=== PATIENT | male | born 1945 | race Caucasian/White ===

== ENCOUNTER 2020-08-04 16:46 | Inpatient (IN) | payer OTHER, MEDICARE ==
[~2020-08-04] VITALS: Ht 180.3 cm; Wt 129.6 kg
[2020-08-04] MEDS ORDERED: ATOR40TA PO (17:17)
[2020-08-04] MEDS ORDERED: EUTHYROX137 MCG PO (17:18)
[2020-08-04] MEDS ORDERED: FAMO40 PO (17:18)
[2020-08-04] MEDS ORDERED: Prinivil10 MG PO (17:19)
[2020-08-04] MEDS ORDERED: Terazosin HCl10 MG PO (17:20)
[2020-08-04] MEDS ORDERED: LATA.005SO BOTHEYES (17:20)
[2020-08-04] MEDS ORDERED: ZADITOR5 M1 BOTHEYES (17:20)
[2020-08-04] MEDS ORDERED: ZYRTEC10 M4 PO (17:21)
[2020-08-04] MEDS ORDERED: Folic Acid0.8 MG PO (17:39)
[2020-08-04] MEDS ORDERED: Hair, Skin & N1 EACH PO (17:39)
[2020-08-05 04:19] LABS: BASOPHILS ABSOLUTE AUTO 0.03 K/mm3 (0.00-0.23); BASOPHILS PERCENT AUTO 0 % (0-2); EOSINOPHILS ABSOLUTE AUTO 0.11 K/mm3 (0.00-0.68); EOSINOPHILS PERCENT AUTO 1 % (0-6); Hemoglobin 10.9 g/dL (13.5-17.5); IMMATURE GRAN ABSOLUTE AUTO 0.04 K/mm3 (0.00-0.10); IMMATURE GRAN PERCENT AUTO 0 % (0-1); LYMPHOCYTES ABSOLUTE AUTO 1.38 K/mm3 (0.84-5.20); LYMPHOCYTES PERCENT AUTO 11 % (21-46); MONOCYTES ABSOLUTE AUTO 1.64 K/mm3 (0.16-1.47); MONOCYTES PERCENT AUTO 13 % (4-13); Mean Corpuscular HGB 30.4 pg (26.0-34.0); Mean Corpuscular Volume 92 fL (80-100); Mean Platelet Volume 8.9 fL (9.1-12.4); NEUTROPHILS ABSOLUTE AUTO 9.04 K/mm3 (1.96-9.15); NEUTROPHILS PERCENT AUTO 74 % (41-73); Platelet Count 243 K/mm3 (150-400); RDW Coefficient Variation 12.2 % (11.7-14.2); RDW Standard Deviation 41.5 fL (35.1-46.3); Red Blood Cell Count 3.59 M/mm3 (4.30-5.90); White Blood Cell Count 12.24 K/mm3 (4.00-11.30)
--- NOTE | 2020-08-05 04:25 | NUR ---
SHIFT SUMMARY PT NEW ADMIT YESTARDAY EVENING. AAOX4. NPO THIS AM. PAIN CONTROLLED WITH 1MG IV DILAUDID X2 THIS SHIFT. DENIES NAUSEA/EMESIS. REBOUND PAIN TO ABD RLQ. PT UP TO RESTROOM SBA, ASSISTING TO MANAGE LINES. IVF + ABX PER ORDERS. CPAP IN PLACE T/O NIGHT WITH CONT PULSE OXIMETRY. SURGICAL PACKET ON FRONT OF CHART. PT RESTING WELL THIS AM WITH CALL LIGHT IN REACH.
[2020-08-05 04:37] LABS: Anion Gap 7 mmol/L (6-16); Blood Urea Nitrogen 11 mg/dL (8-24); Bun/Creatinine Ratio 12.3 (12.0-20.0); CO2, Blood 23 mmol/L (21-32); Calcium, Blood 7.9 mg/dL (8.5-10.1); Chloride, Blood 107 mmol/L (98-108); Creatinine, Blood 0.89 mg/dL (0.60-1.20); Glomerular Filtration Rate >60 (60-); Glucose, Blood 100 mg/dL (70-99); Potassium, Blood 4.1 mmol/L (3.5-5.5); Sodium, Blood 137 mmol/L (136-145)
[2020-08-05 09:06] LABS: Stool Occult Blood Guaiac 1 Neg (Neg)
--- NOTE | 2020-08-05 17:14 | NUR ---
PT INTO SDS VIA GURN FROM FLOOR. History, Chart, Medications and Allergies reviewed before start of procedure. Lungs clear T/O to Auscultation. Patient confirms NPO status and agrees with scheduled surgery. Pre-Op teaching done. Pt verbalizes understanding.
--- NOTE | 2020-08-05 17:35 | NUR ---
PT'S [place]EDDING RING PUT IN A PLASTIC BAG WITH PT DIRECTOR EXECUTIVE COMMUNICATIONS IT AND PLACED IN HIS ROOM IN A MANILA ENVELOPE IN HIS PERSONAL BELONGINGS BAG.
--- NOTE | 2020-08-05 21:41 | NUR ---
Patient returned from PACU at 2119. is present and will be headed home in a few minutes. Patient with 8/10 abdominal pain. 3 lap sites and a ELKE drain with serosanguinous fluid. taking clear liquids well. back from PACU with 2 L NC O2 will, patient is no ready to go to sleep yet and will ask for the CPAP mask. Call light in reach.
[2020-08-06 04:25] LABS: BASOPHILS ABSOLUTE AUTO 0.01 K/mm3 (0.00-0.23); BASOPHILS PERCENT AUTO 0 % (0-2); EOSINOPHILS PERCENT AUTO 0 % (0-6); Hematocrit 35.2 % (37.0-53.0); Hemoglobin 11.3 g/dL (13.5-17.5); IMMATURE GRAN ABSOLUTE AUTO 0.06 K/mm3 (0.00-0.10); IMMATURE GRAN PERCENT AUTO 1 % (0-1); LYMPHOCYTES ABSOLUTE AUTO 0.53 K/mm3 (0.84-5.20); LYMPHOCYTES PERCENT AUTO 5 % (21-46); MONOCYTES ABSOLUTE AUTO 0.43 K/mm3 (0.16-1.47); MONOCYTES PERCENT AUTO 4 % (4-13); Mean Corpuscular HGB 29.5 pg (26.0-34.0); Mean Corpuscular HGB Conc 32.1 g/dL (31.5-36.5); Mean Corpuscular Volume 92 fL (80-100); Mean Platelet Volume 8.9 fL (9.1-12.4); NEUTROPHILS ABSOLUTE AUTO 10.74 K/mm3 (1.96-9.15); NEUTROPHILS PERCENT AUTO 91 % (41-73); Platelet Count 277 K/mm3 (150-400); RDW Coefficient Variation 11.9 % (11.7-14.2); RDW Standard Deviation 40.4 fL (35.1-46.3); Red Blood Cell Count 3.83 M/mm3 (4.30-5.90); White Blood Cell Count 11.77 K/mm3 (4.00-11.30)
[2020-08-06 04:38] LABS: Anion Gap 9 mmol/L (6-16); Blood Urea Nitrogen 18 mg/dL (8-24); Bun/Creatinine Ratio 20.4 (12.0-20.0); CO2, Blood 22 mmol/L (21-32); Calcium, Blood 8.1 mg/dL (8.5-10.1); Chloride, Blood 109 mmol/L (98-108); Creatinine, Blood 0.88 mg/dL (0.60-1.20); Glomerular Filtration Rate >60 (60-); Glucose, Blood 135 mg/dL (70-99); Potassium, Blood 4.7 mmol/L (3.5-5.5); Sodium, Blood 140 mmol/L (136-145)
--- NOTE | 2020-08-06 05:12 | NUR ---
PATIENT SLEPT WITH THE CPAP AND STATED THAT HE SLEPT WELL, PAIN WAS NOT AN ISSUE WHILE SLEEPING. PATIENT IS NOW UP TO THE BR WITH SBA, VOIDING WELL. ABDOMEN WITH MOD DISTENTION AND C/D/I DRESSINGS ON THE LAP SITES. PATIENT IS CURRENTLY IN A RECLINER CHAIR. CALL LIGHT IN REACH.
--- NOTE | 2020-08-06 16:37 | NUR ---
SHIFT SUMMARY PATIENT STATES PAIN INTERMITANTLY, IMROVED WITH PO PAIN MED. UP TO CHAIR AND BR W/SBA. MINIMAL SS DRAINAGE TO ELKE DRAIN. LAP SITES CLEAR. VSS. PASSING FLATUS. TOLERATING CL PO W/O C/O. IN TO SEE. NO ACUTE CHANGES.
--- NOTE | 2020-08-06 22:52 | NUR ---
ASSUMED CARE AT THIS TIME. RECIEVED REPORT FROM NURSE JUSTA. PATIENT IS CURRENTLY RESTING IN BED WITH CALL LIGHT WITHIN REACH.
--- NOTE | 2020-08-07 04:05 | NUR ---
SHIFT SUMMARY: ACUTE APPENDICITIS POD 2. PT HAD PAIN ONCE DURING SHIFT AND WAS MANAGED BY PO PAIN MED. HE HAS BEEN ABLE TO AMBULATE TO THE BATHROOM WITH SBA. ELKE DRAIN HAD 55 ML OF OUTPUT WITH SANGUINEOUS PINK/RED COLOR. HIS 4 LAP SITES ARE D/C/I. VITAL SIGNS ARE WITHIN NORMAL LIMITS. HE IS PASSING FLATUS. NO ACUTE CHANGES. CALL LIGHT WITHIN REACH. PATIENT IS SLEEPING IN BED WITH CPAP ON.
[2020-08-07 04:13] LABS: BASOPHILS ABSOLUTE AUTO 0.02 K/mm3 (0.00-0.23); BASOPHILS PERCENT AUTO 0 % (0-2); EOSINOPHILS ABSOLUTE AUTO 0.06 K/mm3 (0.00-0.68); EOSINOPHILS PERCENT AUTO 1 % (0-6); Hematocrit 31.9 % (37.0-53.0); Hemoglobin 10.6 g/dL (13.5-17.5); IMMATURE GRAN ABSOLUTE AUTO 0.05 K/mm3 (0.00-0.10); IMMATURE GRAN PERCENT AUTO 0 % (0-1); LYMPHOCYTES ABSOLUTE AUTO 1.46 K/mm3 (0.84-5.20); LYMPHOCYTES PERCENT AUTO 13 % (21-46); MONOCYTES ABSOLUTE AUTO 1.06 K/mm3 (0.16-1.47); MONOCYTES PERCENT AUTO 9 % (4-13); Mean Corpuscular HGB 29.9 pg (26.0-34.0); Mean Corpuscular HGB Conc 33.2 g/dL (31.5-36.5); Mean Corpuscular Volume 90 fL (80-100); NEUTROPHILS ABSOLUTE AUTO 8.93 K/mm3 (1.96-9.15); NEUTROPHILS PERCENT AUTO 77 % (41-73); Platelet Count 293 K/mm3 (150-400); RDW Coefficient Variation 11.9 % (11.7-14.2); RDW Standard Deviation 39.5 fL (35.1-46.3); Red Blood Cell Count 3.55 M/mm3 (4.30-5.90); White Blood Cell Count 11.58 K/mm3 (4.00-11.30)
--- NOTE | 2020-08-07 09:47 | NUR ---
DR CHIN IN TO SEE PT.
--- NOTE | 2020-08-07 16:57 | NUR ---
SUMMARY NO ACUTE CHANGES T/O SHIFT. PT INDEPENDENT IN ROOM. REPORTED BM. SHOWERED THIS SHIFT. TOLERATING SMALL AMOUNTS REGULAR DIET. ELKE PUTTING OUT SS DRAINAGE. USES CALL LIGHT APPROPRIATELY. RESTING W/EYES CLOSED AT THIS TIME.
--- NOTE | 2020-08-07 17:31 | NUR ---
REPORT RECEIVED FROM DWAYNE CH
[2020-08-08 04:54] LABS: BASOPHILS ABSOLUTE AUTO 0.05 K/mm3 (0.00-0.23); BASOPHILS PERCENT AUTO 1 % (0-2); EOSINOPHILS ABSOLUTE AUTO 0.27 K/mm3 (0.00-0.68); EOSINOPHILS PERCENT AUTO 4 % (0-6); Hematocrit 32.9 % (37.0-53.0); Hemoglobin 10.7 g/dL (13.5-17.5); IMMATURE GRAN ABSOLUTE AUTO 0.04 K/mm3 (0.00-0.10); IMMATURE GRAN PERCENT AUTO 1 % (0-1); LYMPHOCYTES ABSOLUTE AUTO 1.92 K/mm3 (0.84-5.20); LYMPHOCYTES PERCENT AUTO 26 % (21-46); MONOCYTES ABSOLUTE AUTO 0.94 K/mm3 (0.16-1.47); MONOCYTES PERCENT AUTO 13 % (4-13); Mean Corpuscular HGB 29.6 pg (26.0-34.0); Mean Corpuscular HGB Conc 32.5 g/dL (31.5-36.5); Mean Corpuscular Volume 91 fL (80-100); NEUTROPHILS ABSOLUTE AUTO 4.06 K/mm3 (1.96-9.15); NEUTROPHILS PERCENT AUTO 56 % (41-73); Platelet Count 289 K/mm3 (150-400); RDW Coefficient Variation 12.2 % (11.7-14.2); RDW Standard Deviation 40.5 fL (35.1-46.3); Red Blood Cell Count 3.62 M/mm3 (4.30-5.90); White Blood Cell Count 7.28 K/mm3 (4.00-11.30)
--- NOTE | 2020-08-08 05:35 | NUR ---
SHIFT SUMMARY LYING IN SEMI FOWLERS WITH EYES OPEN WHILE WATCHING TV. BIOX HAS ALARMED THROUGHOUT THE SHIFT. EACH TIME NURSING NOTED THAT HIS HR WAS LESS THAN 50, PT WOULD SHAKE HIS HAND AND HR WOULD DISPLAY IN THE MID 50'S. HE HAS BEEN AAO X4 EACH TIME. STATES THAT EACH MORNING WHEN HE WAKES UP HIS HR IS IN THE 50'S AND HE FEELS FINE. ELKE DRAIN CONTINUES TO PUT OUT SS FLUID. BULB EMPTIED OF 80ML AND IS COMPRESSED. LAP SITES ARE C/D/I. HAS DENIED PAIN THIS SHIFT, STATED THAT HE DOESN'T LIKE TAKING NARCOTICS AND WOULD ASK FOR TYLENOL IF PAIN INCREASED. TOOK CPAP OFF AT 0400HRS, STATED THAT THIS IS HIS NORMAL. DENIES FURTHER NEEDS OR WANTS AT THIS TIME. SAFETY MEASURES IN PLACE. WILL CONTINUE TO MONITOR AND GIVE HAND OFF TO ONCOMING SHIFT USING SBAR.
[2020-08-08] MEDS ORDERED: AMOCLA500 PO (12:54)
--- NOTE | 2020-08-08 13:50 | NUR ---
Patient discharged home. Discharge instructions given, explained and signed. Antibiotic prescription called into [facility] per patient request. Patient to follow up with surgeon. Patient denied questions or concerns at discharge.
== END 2020-08-08 13:23 | disposition home or self-care (01) | DRG 342 ==
LOC: ER 16:46 → SURS 16:47
PROVIDERS: Surgery; ADMIT Family Medicine
PROC: 0DTJ4ZZ Resection of Appendix, Percutaneous Endoscopic Approach (ICD-10-PCS; principal; 2020-08-05 15:15)
DX: K35.80 Unspecified acute appendicitis (principal); K92.1 Melena; G47.33 Obstructive sleep apnea (adult) (pediatric); Z20.828 Contact with and (suspected) exposure to other viral communicable diseases; K21.9 Gastro-esophageal reflux disease without esophagitis; N40.0 Benign prostatic hyperplasia without lower urinary tract symptoms; E03.9 Hypothyroidism, unspecified; E78.5 Hyperlipidemia, unspecified; I10 Essential (primary) hypertension; F17.290 Nicotine dependence, other tobacco product, uncomplicated; E66.9 Obesity, unspecified; Z68.38 Body mass index [BMI] 38.0-38.9, adult
CPT/HCPCS: 36415; 80048; 82272; 85025; 93005; 93010; 94660; 94667; 94762; 96361; 96365; 96366; 96375; 96376; 99285-25; A9270-GY; C9113; G0378; J0295; J1100; J1170; J1650; J2405; J2704; J3010; J7030; J7120

== ENCOUNTER 2020-08-26 10:04 | Inpatient (IN) | payer OTHER, MEDICARE ==
[~2020-08-26] VITALS: Ht 180.3 cm; Wt 121.0 kg
[~2020-08-26 10:04] MED LIST: AMOCLA500 PO; ATOR40TA PO; EUTHYROX137 MCG PO; FAMO40 PO; Folic Acid0.8 MG PO; Hair, Skin & N1 EACH PO; LATA.005SO BOTHEYES; Prinivil10 MG PO; Terazosin HCl10 MG PO; ZADITOR5 M1 BOTHEYES; ZYRTEC10 M4 PO
[2020-08-26 10:23] LABS: BASOPHILS ABSOLUTE AUTO 0.03 K/mm3 (0.00-0.23); BASOPHILS PERCENT AUTO 0 % (0-2); EOSINOPHILS ABSOLUTE AUTO 0.04 K/mm3 (0.00-0.68); EOSINOPHILS PERCENT AUTO 0 % (0-6); Hematocrit 33.8 % (37.0-53.0); IMMATURE GRAN ABSOLUTE AUTO 0.04 K/mm3 (0.00-0.10); IMMATURE GRAN PERCENT AUTO 0 % (0-1); LYMPHOCYTES ABSOLUTE AUTO 0.91 K/mm3 (0.84-5.20); LYMPHOCYTES PERCENT AUTO 8 % (21-46); MONOCYTES ABSOLUTE AUTO 1.16 K/mm3 (0.16-1.47); MONOCYTES PERCENT AUTO 11 % (4-13); Mean Corpuscular HGB 28.9 pg (26.0-34.0); Mean Corpuscular HGB Conc 32.5 g/dL (31.5-36.5); Mean Corpuscular Volume 89 fL (80-100); Mean Platelet Volume 9.1 fL (9.1-12.4); NEUTROPHILS ABSOLUTE AUTO 8.59 K/mm3 (1.96-9.15); NEUTROPHILS PERCENT AUTO 80 % (41-73); Platelet Count 285 K/mm3 (150-400); RDW Coefficient Variation 12.6 % (11.7-14.2); White Blood Cell Count 10.77 K/mm3 (4.00-11.30)
[2020-08-26 10:46] LABS: Albumin, Blood 2.4 g/dL (3.4-5.0); Albumin/Globulin Ratio 0.5 (0.8-1.8); Bilirubin, Total 0.5 mg/dL (0.1-1.0); Calcium, Blood 8.9 mg/dL (8.5-10.1); Creatinine, Blood 1.27 mg/dL (0.60-1.20); Globulin, Blood 4.4 g/dL (2.2-4.0); Potassium, Blood 4.2 mmol/L (3.5-5.5); Total Protein, Blood 6.8 g/dL (6.4-8.2)
[2020-08-26 13:34] LABS: Source, Urine Clean Catch
[2020-08-26 13:38] LABS: Bilirubin, Urine Neg (Neg); Blood, Urine 1+ (Neg); Glucose Qualitative, Urine Neg (Neg); Ketones, Urine 1+ (Neg); Leukocyte Esterase, Urine Neg (Neg); Nitrite, Urine Neg (Neg); Protein, Urine 1+ (Neg); Urobilinogen, Urine NORM (Normal)
[2020-08-26 13:48] LABS: Appearance, Urine Clear (Clear); Color, Urine Yellow (P-Yellow)
[2020-08-26 13:50] LABS: Bacteria Few /hpf; Granular Casts 0-2 /lpf (0); Mucus Light (0-Heavy); Squamous Epithelial Cells Few /hpf (Few); White Blood Cells, Urine 0-2 /hpf (0-5)
[2020-08-26 15:08] LABS: BASOPHILS ABSOLUTE AUTO 0.03 K/mm3 (0.00-0.23); BASOPHILS PERCENT AUTO 0 % (0-2); EOSINOPHILS ABSOLUTE AUTO 0.12 K/mm3 (0.00-0.68); EOSINOPHILS PERCENT AUTO 1 % (0-6); Hematocrit 32.8 % (37.0-53.0); Hemoglobin 10.4 g/dL (13.5-17.5); IMMATURE GRAN ABSOLUTE AUTO 0.04 K/mm3 (0.00-0.10); IMMATURE GRAN PERCENT AUTO 0 % (0-1); LYMPHOCYTES ABSOLUTE AUTO 1.21 K/mm3 (0.84-5.20); LYMPHOCYTES PERCENT AUTO 13 % (21-46); MONOCYTES ABSOLUTE AUTO 1.08 K/mm3 (0.16-1.47); MONOCYTES PERCENT AUTO 11 % (4-13); Mean Corpuscular HGB 28.7 pg (26.0-34.0); Mean Corpuscular HGB Conc 31.7 g/dL (31.5-36.5); Mean Corpuscular Volume 90 fL (80-100); Mean Platelet Volume 9.2 fL (9.1-12.4); NEUTROPHILS ABSOLUTE AUTO 6.97 K/mm3 (1.96-9.15); NEUTROPHILS PERCENT AUTO 74 % (41-73); Platelet Count 281 K/mm3 (150-400); RDW Coefficient Variation 12.6 % (11.7-14.2); RDW Standard Deviation 41.9 fL (35.1-46.3); Red Blood Cell Count 3.63 M/mm3 (4.30-5.90); White Blood Cell Count 9.45 K/mm3 (4.00-11.30)
[2020-08-26 15:32] LABS: Alanine Aminotransfer (ALT/SGP 43 U/L (12-78); Albumin, Blood 2.2 g/dL (3.4-5.0); Albumin/Globulin Ratio 0.5 (0.8-1.8); Alk Phos 80 U/L (50-136); Anion Gap 7 mmol/L (6-16); Aspartate Aminotrans (AST/SGOT 24 U/L (12-37); Bilirubin, Total 0.4 mg/dL (0.1-1.0); Blood Urea Nitrogen 28 mg/dL (8-24); Bun/Creatinine Ratio 24.6 (12.0-20.0); CO2, Blood 24 mmol/L (21-32); Calcium, Blood 8.2 mg/dL (8.5-10.1); Chloride, Blood 106 mmol/L (98-108); Creatinine, Blood 1.14 mg/dL (0.60-1.20); Globulin, Blood 4.1 g/dL (2.2-4.0); Glomerular Filtration Rate >60 (60-); Glucose, Blood 117 mg/dL (70-99); Potassium, Blood 4.6 mmol/L (3.5-5.5); Sodium, Blood 137 mmol/L (136-145); Total Protein, Blood 6.3 g/dL (6.4-8.2)
--- NOTE | 2020-08-26 16:27 | NUR ---
DR GARY HERE TO SEE PT. STOOL SAMPLES SENT.
--- NOTE | 2020-08-26 18:45 | NUR ---
DR NOTIFIED OF PT'S RECENT HX OF DIARRHEA AND PT REPORTING SOB AT TIMES. REPORTS TO ORDER RAPID COVID. RAPID SENT, DISCUSSED WITH DERRICK BUILDER. PT WEARING MASK.
--- NOTE | 2020-08-27 05:57 | NUR ---
SUMMARY PT SLEPT QUIETLY TONIGHT WEARING CPAP.NO N/V. IV FLUIDS INFUSING.
[2020-08-27 06:20] LABS: BASOPHILS ABSOLUTE AUTO 0.02 K/mm3 (0.00-0.23); BASOPHILS PERCENT AUTO 0 % (0-2); EOSINOPHILS ABSOLUTE AUTO 0.22 K/mm3 (0.00-0.68); EOSINOPHILS PERCENT AUTO 3 % (0-6); Hematocrit 32.4 % (37.0-53.0); Hemoglobin 10.5 g/dL (13.5-17.5); IMMATURE GRAN ABSOLUTE AUTO 0.03 K/mm3 (0.00-0.10); IMMATURE GRAN PERCENT AUTO 0 % (0-1); LYMPHOCYTES ABSOLUTE AUTO 0.91 K/mm3 (0.84-5.20); LYMPHOCYTES PERCENT AUTO 13 % (21-46); MONOCYTES PERCENT AUTO 15 % (4-13); Mean Corpuscular HGB 28.9 pg (26.0-34.0); Mean Corpuscular HGB Conc 32.4 g/dL (31.5-36.5); Mean Corpuscular Volume 89 fL (80-100); Mean Platelet Volume 9.2 fL (9.1-12.4); NEUTROPHILS ABSOLUTE AUTO 4.66 K/mm3 (1.96-9.15); NEUTROPHILS PERCENT AUTO 68 % (41-73); Platelet Count 306 K/mm3 (150-400); RDW Coefficient Variation 12.7 % (11.7-14.2); RDW Standard Deviation 41.8 fL (35.1-46.3); Red Blood Cell Count 3.63 M/mm3 (4.30-5.90); White Blood Cell Count 6.84 K/mm3 (4.00-11.30)
[2020-08-27 06:33] LABS: Alanine Aminotransfer (ALT/SGP 32 U/L (12-78); Albumin/Globulin Ratio 0.5 (0.8-1.8); Alk Phos 65 U/L (50-136); Anion Gap 9 mmol/L (6-16); Aspartate Aminotrans (AST/SGOT 19 U/L (12-37); Bilirubin, Total 0.4 mg/dL (0.1-1.0); Blood Urea Nitrogen 25 mg/dL (8-24); Bun/Creatinine Ratio 28.3 (12.0-20.0); CO2, Blood 21 mmol/L (21-32); Calcium, Blood 7.9 mg/dL (8.5-10.1); Chloride, Blood 108 mmol/L (98-108); Creatinine, Blood 0.88 mg/dL (0.60-1.20); Globulin, Blood 4.1 g/dL (2.2-4.0); Glomerular Filtration Rate >60 (60-); Glucose, Blood 96 mg/dL (70-99); Magnesium, Blood 2.6 mg/dL (1.6-2.4); Potassium, Blood 4.4 mmol/L (3.5-5.5); Sodium, Blood 138 mmol/L (136-145); Total Protein, Blood 6.1 g/dL (6.4-8.2)
[2020-08-27 09:39] LABS: Stool Occult Blood Guaiac 1 Neg (Neg)
--- NOTE | 2020-08-27 17:04 | NUR ---
Shift summary Patient has denied pain this shift. Patient tolerating sips of clear liquid. Zofran given once for nausea. Patient ambulated in the espinoza independently. Patient passing small amount flatus and had one small bowel movement this morning. Consult for GI placed today.
[2020-08-28 05:02] LABS: Hematocrit 33.9 % (37.0-53.0); Mean Corpuscular HGB 28.9 pg (26.0-34.0); Mean Corpuscular HGB Conc 32.4 g/dL (31.5-36.5); Mean Corpuscular Volume 89 fL (80-100); Platelet Count 303 K/mm3 (150-400); RDW Coefficient Variation 12.6 % (11.7-14.2); RDW Standard Deviation 41.1 fL (35.1-46.3); White Blood Cell Count 4.39 K/mm3 (4.00-11.30)
[2020-08-28 05:25] LABS: Albumin, Blood 2.3 g/dL (3.4-5.0); Anion Gap 7 mmol/L (6-16); Blood Urea Nitrogen 23 mg/dL (8-24); Bun/Creatinine Ratio 27.2 (12.0-20.0); CO2, Blood 26 mmol/L (21-32); Calcium, Blood 8.2 mg/dL (8.5-10.1); Chloride, Blood 105 mmol/L (98-108); Creatinine, Blood 0.85 mg/dL (0.60-1.20); Glomerular Filtration Rate >60 (60-); Glucose, Blood 175 mg/dL (70-99); Phosphorus, Blood 3.1 mg/dL (2.5-4.9); Sodium, Blood 138 mmol/L (136-145)
[2020-08-28 05:26] LABS: BAND PERCENT MAN 27 % (0-8); BASOPHILS PERCENT MAN 0 % (0-2); EOSINOPHILS PERCENT MAN 0 % (0-6); LYMPHOCYTES PERCENT MAN 7 % (21-46); MONOCYTES ABSOLUTE MAN 0.52 K/mm3 (0.16-1.47); MONOCYTES PERCENT MAN 12 % (4-13); MYELOCYTE ABSOLUTE MAN 0.04 K/mm3 (0.00-0.00); MYELOCYTE PERCENT MAN 1 % (0-0); NEUTROPHILS ABSOLUTE MAN 3.51 K/mm3 (1.96-9.15); SEG NEUTROPHILS PERCENT MAN 53 % (41-73); TOTAL CELLS COUNTED 100
--- NOTE | 2020-08-28 05:37 | NUR ---
SHIFT SUMMARY: REBECCA IS A&OX4. VSS, NO ACUTE EVENTS OVERNIGHT. HE STATES THAT THE GI COCKTAIL WAS EFFECTIVE AT RELIEVING THE BURNING SENSATION HE WAS EXPERIENCING IN HIS STOMACH AND ESOPHAGUS. HE HAS VOMITED APPROX 5 TIMES THIS SHIFT. HE STATES THAT THE FENTANYL PROVIDES ADEQUATE PAIN RELIEF AND THAT THE ZOFRAN IS HELPFUL FOR ALLEVIATING THE NAUSEA/VOMITING. HE USES HIS CALL LIGHT APPROPRIATELY. IV TO R AC PATENT. EMESIS IS MAROON IN COLOR W/SMALL AMOUNT OF MATERIAL THAT IS "COFFEE GROUND" IN APPEARANCE. HE HAS WORN HIS CPAP WHILE SLEEPING THIS SHIFT, WHICH HAS BEEN MINIMAL D/T STOMACH UPSET. HE IS LYING IN BED WITH HIS CALL LIGHT IN REACH. WILL REPORT TO DAY SHIFT RN.
--- NOTE | 2020-08-28 08:54 | NUR ---
NG TUBE INSERTION NG TUBE INSERTED PER DR GARY'S ORDER AT APROX 0840. INSTANT RETURN OF 1700ML COLA/BROWN LIQUID. SET TO LOW INTERMITENT SUCTION. PT TOLERATED WELL AND REPORTS RELIEF AT THIS TIME.
--- NOTE | 2020-08-28 17:14 | NUR ---
SHIFT SUMMARY PT A&OX4, VSS, NG TUBE PLACED THIS AM, LG AMT, DRAINING DK GREEN/BLACK OUTPUT; DENIES NAUSEA AND VOMITING SINCE PLACEMENT; DENIES NEED FOR PAIN MEDICATION. UZIEL ICE CHIPS. IVF @ 100 MLS, ABX ORDERED PER EMAR. VOIDING WELL. WILL REPORT TO ONCOMING NOC RN.
[2020-08-29 00:06] LABS: ADENOVIRUS F 40/41 Not Detected (Not Detected); ASTROVIRUS Not Detected (Not Detected); C DIFFICILE TOXIN A/B Not Detected (Not Detected); CAMPYLOBACTER Not Detected (Not Detected); CRYPTOSPORIDIUM Not Detected (Not Detected); CYCLOSPORA CAYETANENSIS Not Detected (Not Detected); ENTAMOEBA HISTOLYTICA Not Detected (Not Detected); ENTEROAGGREGATIVE E COLI Not Detected (Not Detected); ENTEROPATHOGENIC E COLI Not Detected (Not Detected); ENTEROTOXIGENIC E COLI Not Detected (Not Detected); GIARDIA LAMBLIA Not Detected (Not Detected); NOROVIRUS GI/GII Not Detected (Not Detected); PLESIOMONAS SHIGELLOIDES Not Detected (Not Detected); ROTAVIRUS A Not Detected (Not Detected); SALMONELLA Not Detected (Not Detected); SAPOVIRUS Not Detected (Not Detected); SHIGA-TOXIN-PRODUCING E COLI Not Detected (Not Detected); SHIGELLA/ENTEROINVASIVE E COLI Not Detected (Not Detected); VIBRIO Not Detected (Not Detected); VIBRIO CHOLERAE Not Detected (Not Detected); YERSINIA ENTEROCOLITICA Not Detected (Not Detected)
[2020-08-29 04:06] LABS: BASOPHILS ABSOLUTE AUTO 0.02 K/mm3 (0.00-0.23); BASOPHILS PERCENT AUTO 0 % (0-2); EOSINOPHILS ABSOLUTE AUTO 0.19 K/mm3 (0.00-0.68); EOSINOPHILS PERCENT AUTO 4 % (0-6); Hematocrit 31.5 % (37.0-53.0); IMMATURE GRAN ABSOLUTE AUTO 0.09 K/mm3 (0.00-0.10); IMMATURE GRAN PERCENT AUTO 2 % (0-1); LYMPHOCYTES ABSOLUTE AUTO 1.18 K/mm3 (0.84-5.20); LYMPHOCYTES PERCENT AUTO 26 % (21-46); MONOCYTES ABSOLUTE AUTO 0.86 K/mm3 (0.16-1.47); MONOCYTES PERCENT AUTO 19 % (4-13); Mean Corpuscular HGB 28.7 pg (26.0-34.0); Mean Corpuscular HGB Conc 31.7 g/dL (31.5-36.5); Mean Corpuscular Volume 90 fL (80-100); Mean Platelet Volume 8.6 fL (9.1-12.4); NEUTROPHILS ABSOLUTE AUTO 2.26 K/mm3 (1.96-9.15); NEUTROPHILS PERCENT AUTO 49 % (41-73); Platelet Count 334 K/mm3 (150-400); RDW Coefficient Variation 12.8 % (11.7-14.2); RDW Standard Deviation 42.5 fL (35.1-46.3); Red Blood Cell Count 3.49 M/mm3 (4.30-5.90)
[2020-08-29 04:34] LABS: Anion Gap 5 mmol/L (6-16); Blood Urea Nitrogen 26 mg/dL (8-24); CO2, Blood 31 mmol/L (21-32); Calcium, Blood 7.9 mg/dL (8.5-10.1); Chloride, Blood 108 mmol/L (98-108); Glomerular Filtration Rate >60 (60-); Glucose, Blood 105 mg/dL (70-99); Potassium, Blood 3.6 mmol/L (3.5-5.5); Sodium, Blood 144 mmol/L (136-145)
--- NOTE | 2020-08-29 07:13 | NUR ---
SHIFT SUMMARY: REBECCA IS A&OX4. VSS, NO ACUTE EVENTS OVERNIGHT. HE HAS RESTED COMFORTABLY FOR THE MAJORITY OF THE SHIFT. HE HAS DENIED THE NEED FOR PAIN MEDICATION. NG TUBE RETURNING GREEN LIQUID. HE REPORTS THAT THE FIRM AREA IN HIS ABDOMEN FEELS SOFTER AND IS LESS TENDER TO PALPATION. HE CONTINUES TO HAVE LOW URINE OUTPUT. HE USES HIS CALL LIGHT APPROPRIATELY. IV TO R AC PATENT. WILL REPORT TO DAY SHIFT RN.
--- NOTE | 2020-08-29 16:47 | NUR ---
SHIFT SUMMARY PT HAS DONE WELL T/O SHIFT. NG TUBE PATENT, DRAINING THIN CLEAR/BROWN LIQUID BUT PT HAS TAKING IN APROX 160ML ICE CHIPS T/O SHIFT. PT UP AMBULATING IN HALLWAY, NG TUBE CLAMPED AT THAT TIME PT TOLERATED WITH NO N/V. IVF PER EMAR.
--- NOTE | 2020-08-30 06:56 | NUR ---
SHIFT SUMMARY PT RESTED WELL T/O NIGHT. AAOX4. NPO. PT DENIES PAIN/NAUSEA/EMESIS T/O SHIFT. NGT TO LIS, 400cc LIGHT GREEN OUT, SMALL CUP OF ICE CHIPS FOR INTAKE THIS SHIFT WITH TOTAL OF 100cc OUT. IVF + ABX PER ORDERS. PT REPORTING MODERATE TO LARGE AMOUNTS OF FLATUS THIS SHIFT. NO BM. BTX4 HYPOACTIVE AT START OF NOC SHIFT. PT CURRENTLY RESTING IN BED WITH CALL LIGHT IN REACH.
--- NOTE | 2020-08-30 10:07 | NUR ---
PT IN RADIOLOGY
--- NOTE | 2020-08-30 17:08 | NUR ---
PT HAS DENIED ANY NAUSEA OR ABD DISCOMFORT SINCE NGT CLAMPED THIS AM FOR SBFT, REPORTS HAVING 4 LOOSE BM'S TODAY, ABD SOFT, NGT DC'D PER DR. GARY, START CLEAR LIQUIDS, INSTRUCTED TO NOTIFY RN IF HAVING ANY INCREASED ABD PAIN, DISCOMFORT OR N/V, NO ACUTE CHANGES THIS SHIFT.
--- NOTE | 2020-08-30 17:32 | NUR ---
Pt resting in bed upon arrival. Pt denies pain and dyspnea at this time. Pt reports feeling better and NG tube D/C. Pt tolerating liquid diet at this time. Engaged in therapeutic listening as Pt describes events leading up to this hospital stay. Continued listening and discussed plan of care. Discussed considering completing an advanced directive with Pt and spouse reporting once already completed. Spouse Eulalia jaimes in copy tomorrow. Pt expresses appreciation of visit and reports no concerns at this time. Spoke with Bedside RN [place] and discussed case. Palliative Care will remain available.
--- NOTE | 2020-08-31 04:39 | NUR ---
SHIFT SUMMARY PT A0X4. PT SLEPT GOOD THROUGH THE NIGHT. USED CPAP MACHINGE AT NIGHT BUT DENIES USE OF CONT BIOX DUE TO BEEPING NOISE NOT MAKING HIM SLEEP. CALLED RT, PT SIGNED A REFUSAL FORM. PT DENIES SOB/CP/NUMB/TINGLING. ENC USE OF INCENTIVE VEENA AND DEEP BREATHING. VSS. PT TOLERATING CLEAR LIQ DIET, DENIES NAUSEA/VOMITING. PT REMAINS MILD ABD DISTENTION DENIES BLOATING AND DENIES PAIN. PT REPORTS URINE OUTPUT ADEQUATE AND 2 BM. ABX X 2 ADMINSTERED DURING THE SHIFT. NS STILL INFUSING. IV AMT INFUSED 950ML.
[2020-08-31 05:53] LABS: Hemoglobin 9.5 g/dL (13.5-17.5); Mean Corpuscular HGB 29.1 pg (26.0-34.0); Mean Corpuscular HGB Conc 31.7 g/dL (31.5-36.5); Mean Corpuscular Volume 92 fL (80-100); Mean Platelet Volume 8.7 fL (9.1-12.4); Platelet Count 306 K/mm3 (150-400); RDW Coefficient Variation 12.7 % (11.7-14.2); RDW Standard Deviation 42.5 fL (35.1-46.3); Red Blood Cell Count 3.27 M/mm3 (4.30-5.90); White Blood Cell Count 8.14 K/mm3 (4.00-11.30)
[2020-08-31 06:09] LABS: Anion Gap 5 mmol/L (6-16); Blood Urea Nitrogen 14 mg/dL (8-24); Bun/Creatinine Ratio 16.7 (12.0-20.0); CO2, Blood 28 mmol/L (21-32); Calcium, Blood 7.7 mg/dL (8.5-10.1); Chloride, Blood 112 mmol/L (98-108); Creatinine, Blood 0.84 mg/dL (0.60-1.20); Glomerular Filtration Rate >60 (60-); Glucose, Blood 123 mg/dL (70-99); Potassium, Blood 3.5 mmol/L (3.5-5.5); Sodium, Blood 145 mmol/L (136-145)
[2020-08-31 06:17] LABS: BAND PERCENT MAN 2 % (0-8); BASOPHILS PERCENT MAN 0 % (0-2); EOSINOPHILS ABSOLUTE MAN 0.16 K/mm3 (0.00-0.68); EOSINOPHILS PERCENT MAN 2 % (0-6); LYMPHOCYTES PERCENT MAN 32 % (21-46); METAMYELOCYTE ABSOLUTE MAN 0.08 K/mm3 (0.00-0.00); METAMYELOCYTE PERCENT MAN 1 % (0-0); MONOCYTES ABSOLUTE MAN 0.89 K/mm3 (0.16-1.47); MONOCYTES PERCENT MAN 11 % (4-13); MYELOCYTE ABSOLUTE MAN 0.16 K/mm3 (0.00-0.00); MYELOCYTE PERCENT MAN 2 % (0-0); NEUTROPHILS ABSOLUTE MAN 4.23 K/mm3 (1.96-9.15); SEG NEUTROPHILS PERCENT MAN 50 % (41-73); TOTAL CELLS COUNTED 100
--- NOTE | 2020-08-31 18:46 | NUR ---
SUMMARY: NO ACUTE CHANGE TODAY,VSS, A/O. PT TOLERATING CLEAR LIQ. DENIES N/V. IS PASSING GAS AND HAVING BMS. DENIES PAIN, VOIDING WELL. DR. COLLINS SAW PT AT ABOUT 1700, THIS RN IN ROOM FOR CONVERSATION. PT ABLE TO ADVANCE TO REG DIET, PT REMINDED TO GO SLOW WITH EATING. PLAN IS FOR COLONSCOPY AFTER DISCHARGE AND NOT AT THIS TIME. WILL CTM AND REPORT TO NOC RN.
--- NOTE | 2020-09-01 05:14 | NUR ---
SHIFT SUMMARY PT A0X4. PT STARTED RED DIET (DINNER), UZIEL IT WELL DENIES N/V. PT NOTIFIED TO TAKE IT SLOW W/ DINNER MEAL. PT REPORTS PASSING FLATUS DENIES BM DURING MY SHIFT. PT DENIES PAIN, NO BLOATING. PT HAS ADEQUATE URINE OUTPUT. FLUID AND ABX ADMINSTERED LAST NIGHT. PT USED CPAP MACHINE W/O BIOX, DENIES SOB. HE SLEPT GOOD ALL NIGHT. VSS. ANTICIPATE DC IF PT REMAIN STABLE, FOLLOWING A COLONOSCOPY (OUTPT) AFTER DISCHARGE.
--- NOTE | 2020-09-01 07:10 | NUR ---
pt awake stated passing gas during the night no bm since diet was adv hoping to go home today no n/v
[2020-09-01] MEDS ORDERED: AMOCLA875 PO (09:58)
--- NOTE | 2020-09-01 10:16 | NUR ---
dr barrera by to see pt ok to discharge rx called to [facility]
== END 2020-09-01 10:45 | disposition home or self-care (01) | DRG 394 ==
LOC: ER 10:04 → SURS 13:31
PROVIDERS: Emergency Medicine; Family Medicine; Internal Medicine; Nurse Practitioner Acute Care; ADMIT Internal Medicine
PROC: 0D9670Z Drainage of Stomach with Drainage Device, Via Natural or Artificial Opening (ICD-10-PCS; principal; 2020-08-28)
DX: K91.89 Other postprocedural complications and disorders of digestive system (principal); K56.0 Paralytic ileus; N17.9 Acute kidney failure, unspecified; K92.0 Hematemesis; Z20.828 Contact with and (suspected) exposure to other viral communicable diseases; G47.33 Obstructive sleep apnea (adult) (pediatric); I10 Essential (primary) hypertension; E03.9 Hypothyroidism, unspecified; E66.01 Morbid (severe) obesity due to excess calories; E78.5 Hyperlipidemia, unspecified; N40.0 Benign prostatic hyperplasia without lower urinary tract symptoms; K21.9 Gastro-esophageal reflux disease without esophagitis; D50.9 Iron deficiency anemia, unspecified; Z68.37 Body mass index [BMI] 37.0-37.9, adult; M19.90 Unspecified osteoarthritis, unspecified site
CPT/HCPCS: 0097U; 36415; 71045; 74177; 74250; 80048; 80053; 80069; 81001; 82272; 83690; 83735; 85025; 87493; 94660; 94760; 94762; 96361; 96365-59; 96375-59; 99285-25; C9113; J0295; J2405; J3010; J7030; J7120; Q9967; U0004

== ENCOUNTER 2020-11-08 09:25 | Day surgery (SDC) | payer OTHER ==
[~2020-11-08] VITALS: Ht 180.3 cm; Wt 121.8 kg
[~2020-11-08 09:25] MED LIST changes: +AMOCLA875 PO; +FOLI1 PO; +LATA.005SO; +LEVOTHYROXINE PO; +MULTIPLE VITAM1 EACH PO; +ZADITOR5 M1; +ZYRTEC10 M2 PO
[2020-11-08] MEDS ORDERED: Hytrin1 MG PO (10:09)
== END 2020-11-08 11:10 | disposition home or self-care (01) ==
LOC: ORSCSDS 09:25
PROVIDERS: Internal Medicine Gastroenterology
PROC: 0DBM8ZX Excision of Descending Colon, Via Natural or Artificial Opening Endoscopic, Diagnostic (ICD-10-PCS; principal; 2020-11-08 10:45)
DX: K52.9 Noninfective gastroenteritis and colitis, unspecified (principal); D12.4 Benign neoplasm of descending colon; K57.30 Diverticulosis of large intestine without perforation or abscess without bleeding; I10 Essential (primary) hypertension; G47.33 Obstructive sleep apnea (adult) (pediatric); D50.9 Iron deficiency anemia, unspecified; E78.5 Hyperlipidemia, unspecified; K44.9 Diaphragmatic hernia without obstruction or gangrene; F17.290 Nicotine dependence, other tobacco product, uncomplicated; E03.9 Hypothyroidism, unspecified; E66.01 Morbid (severe) obesity due to excess calories; Z68.36 Body mass index [BMI] 36.0-36.9, adult; Z79.899 Other long term (current) drug therapy
CPT/HCPCS: 88305; J2704; J7120